=== PATIENT | male | born 1950 | race Caucasian/White ===

== ENCOUNTER → 2020-10-17 15:11 | Outpatient (CLI) | payer OTHER, SELFPAY ==
--- NOTE | 2020-10-17 | DI.RAD.S_ITS ---
PROCEDURE: XR KNEE RT 3V INDICATIONS: RIGHT KNEE PAIN TECHNIQUE: 3 views of the knee were acquired. COMPARISON: None. FINDINGS: Bones: No fractures or dislocations. No suspicious bony lesions. Soft tissues: No joint effusion. No suspicious soft tissue calcifications. IMPRESSION: Normal for age, source of current knee pain symptoms is not seen. Dictated by: Bg Garcia M.D. on 10/17/2020 at 16:33 Approved by: Bg Garcia M.D. on 10/17/2020 at 16:34
== END ==
PROVIDERS: PCP Family Medicine; Referring Provider Family Medicine; Visit Provider Family Medicine
DX: M25.561 Pain in right knee (principal)
CPT/HCPCS: 73562

== ENCOUNTER 2023-02-07 14:13 | Emergency (ER) | payer OTHER, SELFPAY ==
[2023-02-07 14:17] VITALS: BP 175/79; PULSE 79; RESP 18; TEMP 37.1; O2SAT 98
--- NOTE | 2023-02-07 15:05 | ED_ITS ---
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 He states this hurts, there was bleeding, it is bandaged up in a compression dressing and there further bleeding. He denies any injury beyond the finger pad. Denies any wrist or hand pain. Does not remember when his last tetanus was. States that he has not had any pain medication complains of pain 03/25. He is right-hand dominant. It is right-hand 3rd digit at the finger pad. No fingernail involvement. Related Data Allergies Allergy/AdvReac Type Severity Reaction Status Date / Time No Known Drug Allergies Allergy Verified 02/07/23 14:20 Review of Systems <SHERICE Mckinney - Last Filed: 02/07/23 15:23> Review of Systems ROS Unobtainable: All systems reviewed & are unremarkable except as noted in HPI and below Exam <SHERICE Mckinney - Last Filed: 02/07/23 15:23> Narrative Exam Narrative: MSK: Small laceration to the tip of his 3rd digit not involving the fingernail or any deep structures, full range of motion and brisk cap refill, no suspected tendon injury. Laceration is approximately 1 cm long and C-shaped. No bony tenderness to palpation. Initial Vital Signs Initial Vital Signs: Vital Signs Temperature 98.8 F 02/07/23 14:17 Pulse Rate 79 02/07/23 14:17 Respiratory Rate 18 02/07/23 14:17 Blood Pressure 175/79 H 02/07/23 14:17 Pulse Oximetry 98 02/07/23 14:17 Oxygen Delivery Method Room Air 02/07/23 14:17 <Preet Avelar DO - Last Filed: 02/08/23 07:03> Initial Vital Signs Initial Vital Signs: Vital Signs Temperature 98.8 F 02/07/23 14:17 Pulse Rate 79 02/07/23 14:17 Respiratory Rate 18 02/07/23 14:17 Blood Pressure 175/79 H 02/07/23 14:17 Pulse Oximetry 98 02/07/23 14:17 Oxygen Delivery Method Room Air 02/07/23 14:17 Procedures <SHERICE Mckinney - Last Filed: 02/07/23 15:23> Laceration Repair Laceration 1: Site: upper extremity and hand Side (If applicable): right Size (cm): 1 Description: flap Depth: simple, single layer Local Anesthetic: lidocaine 2% Amount of anesthesia used (mL): 1 Pre-repair: wound explored Skin layer closed with: nylon Skin layer suture size: 5-0 Number of sutures: 4 Technique: simple, interrupted Course <SHERICE Mckinney - Last Filed: 02/07/23 15:23> Orders Ordered: Discontinued Medications Hydrocodone Bitart/Acetaminophen (Hydrocodone/Acet 5/325 Tablet) 1 tab PO NOW ONE Stop: 02/07/23 14:54 Last Admin: 02/07/23 15:09 Dose: 1 tab Documented By: MARILYN Bacitracin (Bacitracin Oint 0.9 Gm Pckt) 1 applic TOP NOW ONE Stop: 02/07/23 14:58 Last Admin: 02/07/23 15:09 Dose: 1 applic Documented By: MARILYN Diphtheria/Tetanus/Acell Pertussis (Tet,Diph,Pertuss(Acell),Vac/Pf 0.5 Ml Syringe) 0.5 ml IM .ONCE ONE Stop: 02/07/23 14:54 Last Admin: 02/07/23 15:09 Dose: 0.5 ml Documented By: MARILYN Lidocaine HCl (Lidocaine 2% Inj Sdv 5ml) 5 ml INJ INTRA-OP ONE Stop: 02/07/23 14:58 Last Admin: 02/07/23 15:08 Dose: 5 ml Documented By: MARILYN Vital Signs Vital signs: Vital Signs - 8 hr 02/07/23 14:17 Temperature 98.8 F Pulse Rate 79 Respiratory Rate 18 Blood Pressure 175/79 H Pulse Oximetry 98 Oxygen Delivery Method Room Air <Preet Avelar DO - Last Filed: 02/08/23 07:03> Orders Ordered: Discontinued Medications Hydrocodone Bitart/Acetaminophen (Hydrocodone/Acet 5/325 Tablet) 1 tab PO NOW ONE Stop: 02/07/23 14:54 Last Admin: 02/07/23 15:09 Dose: 1 tab Documented By: MARILYN Bacitracin (Bacitracin Oint 0.9 Gm Pckt) 1 applic TOP NOW ONE Stop: 02/07/23 14:58 Last Admin: 02/07/23 15:09 Dose: 1 applic Documented By: MARILYN Diphtheria/Tetanus/Acell Pertussis (Tet,Diph,Pertuss(Acell),Vac/Pf 0.5 Ml Syringe) 0.5 ml IM .ONCE ONE Stop: 02/07/23 14:54 Last Admin: 02/07/23 15:09 Dose: 0.5 ml Documented By: MARILYN Lidocaine HCl (Lidocaine 2% Inj Sdv 5ml) 5 ml INJ INTRA-OP ONE Stop: 02/07/23 14:58 Last Admin: 02/07/23 15:08 Dose: 5 ml Documented By: MARILYN Vital Signs Vital signs: Vital Signs - 8 hr 02/07/23 14:17 Temperature 98.8 F Pulse Rate 79 Respiratory Rate 18 Blood Pressure 175/79 H Pulse Oximetry 98 Oxygen Delivery Method Room Air MDM - Extremity Injury (Upper) <Tri Michel [facility] - Last Filed: 02/07/23 15:23> MDM Narrative Medical decision making narrative: Chief Complaint: Finger laceration Independent historian: Patient Multiple etiologies for patient's complaint considered including, but not limited to: Finger laceration, fingernail injury, tendon laceration, foreign b ese, contaminated wound I have independently reviewed the patient's vital signs and nursing notes as well as prior records if available. My interpretation of imaging: No imaging indicated as patient has only finger had involvement, no tenderness over the bony structures, full range of motion, brisk cap refill. Course of care: Suture repair was completed, tetanus was updated, patient was given hydrocodone and lidocaine injection for pain control, his wound was closed with 4 sutures, he tolerated this well, understands of his sutures removed in 10 days and will follow up with his primary care provider for this. Social considerations that may affect disposition: none Questions are addressed and there is agreement with the plan and for follow-up. I consulted with the ED attending physician Dr. Avelar as needed for higher level of care considerations and they were available for discussion and recommendations regarding plan of care and diagnostic testing. Patient is appropriate for outpatient management. Discharge Plan Departure Patient Disposition: Home Clinical Impression: Laceration of finger Qualifiers: Encounter type: initial encounter Finger: middle finger Damage to nail status: without damage Foreign body presence: without foreign body Laterality: right Qualified Code(s): S61.212A - Laceration without foreign body of right middle finger without damage to nail, initial encounter Instructions: DI for Laceration Repair -- Finger Activity Restrictions/Additional Instructions: *You have been diagnosed with laceration, there four sutures in your 3rd finger. Please keep this clean, you may wash your hands like usual, apply topical antibiotic ointment and Band-Aid to keep it clean. 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 Have a great day. Sutures removed in 10 days. *What to do: *Please continue to take your regular medications as directed. [ ] New medication prescriptions sent to your pharmacy: [ ] [ ] New medication written as a paper prescription [x ] No new medications given *Please call and schedule follow up with your primary care provider in 2-3 days, at least for an update. Let them know you were seen in the Emergency Department for the above problem. We will electronically transmit a record of today's note if your PCP or specialist is in our system. *If you do not have a primary care provider please contact [phone] to establish care with one of the [facility] primary care providers. *Return to the Emergency Department for worsening symptoms, inability to keep liquids down, fever greater than 101F, chills, or other concerning symptom. Referrals: Michael Manuel MD [Primary Care Provider] - Stand Alone Forms: Patient Portal/API <Preet Avelar DO - Last Filed: 02/08/23 07:03> [facility] ED Attending Shreya Attestation: I was immediately available in the department for consultation. Documentation has been reviewed. I agree with assessment and plan.
[2023-02-07] MEDS: LIDOCAINE 2% INJ SDV 5ML 5 ML INJ (15:08)
[2023-02-07] MEDS: TET,DIPH,PERTUSS(ACELL),VAC/PF 0.5 ML SYRINGE IM (15:09)
[2023-02-07] MEDS: BACITRACIN OINT 0.9 GM PCKT 1 APPLIC TOP (15:09)
[2023-02-07] MEDS: HYDROCODONE/ACET 5/325 TABLET 1 TAB PO (15:09)
[2023-02-07 15:18] VITALS: BMI 24.6
--- NOTE | 2023-02-07 15:20 | PC.NURSE ---
sutures done by SHERICE Michel
== END 2023-02-07 15:29 | disposition home or self-care (01) ==
PROVIDERS: Emergency Provider Nurse Practitioner Critical Care Medicine; PCP Family Medicine
DX: S61.212A Laceration without foreign body of right middle finger without damage to nail, initial encounter (principal); W26.8XXA Contact with other sharp object(s), not elsewhere classified, initial encounter; Z79.01 Long term (current) use of anticoagulants; Z23 Encounter for immunization
CPT/HCPCS: 12001; 90471; 99283; 99284; 90715

== ENCOUNTER → 2023-04-17 07:58 | Outpatient (CLI) | payer OTHER, SELFPAY ==
--- NOTE | 2023-04-17 | DI.NM.S_ITS ---
PROCEDURE: NM UPTAKE AND SCAN RADIOPHARMACEUTICAL: 410 ?Ci I-123 sodium iodide by mouth. INDICATIONS: HYPERTHYROIDISM TECHNIQUE: I-123 sodium iodide was administered orally. Anterior neck images were obtained, and iodine uptake by the thyroid gland calculated using history faculty member's software. COMPARISON: [facility], CT, CT ANGIO CHEST, 04/04/2022, 10:41. FINDINGS: Morphology: The thyroid gland has normal morphology and poor radioiodine uptake. No 'cold' or 'hot' thyroid nodules are identified. Uptake: 6 hour thyroid uptake is 0.5%; normal ranges are from 6-18%. 24 hour thyroid uptake is 0.9%; normal ranges are from 10-30%. IMPRESSION: 1. There is diffusely decreased radioiodine uptake. The patient had a recent chest CT with iodinated intravenous contrast, which could cause suppressed radioiodine uptake by thyroid. Recommend repeat examination in 6-8 weeks. Dictated by: Bhavesh Desai M.D. on 04/18/2023 at 11:39 Approved by: Bhavesh Desai M.D. on 04/18/2023 at 11:47
== END ==
PROVIDERS: PCP Family Medicine; Referring Provider Family Medicine; Visit Provider Family Medicine
DX: E05.90 Thyrotoxicosis, unspecified without thyrotoxic crisis or storm (principal)
CPT/HCPCS: 78014; A9516

== ENCOUNTER → 2023-06-11 07:41 | Outpatient (CLI) | payer OTHER, SELFPAY ==
--- NOTE | 2023-06-11 | DI.NM.S_ITS ---
PROCEDURE: [place] UPTAKE AND SCAN RADIOPHARMACEUTICAL: 0.4 mCi I-123 sodium iodide by mouth. INDICATIONS: Thyrotoxicosis TECHNIQUE: I-123 sodium iodide was administered orally. Anterior neck images were obtained, and iodine uptake by the thyroid gland calculated using insurance biller's software. COMPARISON: [place], [place], [place] UPTAKE AND SCAN, 04/17/2023, 8:22. FINDINGS: Morphology: No significant heterogeneity. Diffusely decreased uptake on visual inspection. No hot nodules identified. Uptake: 6 hour thyroid uptake is 0.5 % ; normal ranges are from 6-18%. 24 hour thyroid uptake is 0.7% ; normal ranges are from 10-30%. IMPRESSION: Abnormally low iodine radiotracer uptake. Dictated by: Phil Lakhani M.D. on 06/12/2023 at 10:47 Approved by: Phil Lakhani M.D. on 06/12/2023 at 10:50
== END ==
PROVIDERS: PCP Family Medicine; Referring Provider Family Medicine; Visit Provider Family Medicine
DX: E05.90 Thyrotoxicosis, unspecified without thyrotoxic crisis or storm (principal)
CPT/HCPCS: 78014; A9516

== ENCOUNTER → 2023-09-10 14:41 | Outpatient (CLI) | payer OTHER, SELFPAY ==
--- NOTE | 2023-09-10 | DI.US.S_ITS ---
PROCEDURE: US ABDOMEN LIMITED INDICATIONS: Umbilical hernia without obstruction or gangrene TECHNIQUE: Real-time focused scanning was performed of the abdomen, with image documentation. COMPARISON: None. Findings and impression: 3.2 x 2.2 centimeter fat filled suspected hernia. The neck measures about 0.9 centimeters. Dictated by: Phil Lakhani M.D. on 09/10/2023 at 16:20 Approved by: Phil Lakhani M.D. on 09/10/2023 at 16:20
== END ==
PROVIDERS: PCP Family Medicine; Referring Provider Family Medicine; Visit Provider Family Medicine
DX: K42.9 Umbilical hernia without obstruction or gangrene (principal)
CPT/HCPCS: 76705

== ENCOUNTER → 2023-10-10 08:36 | Outpatient (CLI) | payer OTHER, SELFPAY ==
--- NOTE | 2023-10-10 | DI.CT.S_ITS ---
PROCEDURE: CT ABDOMEN PELVIS W CON INDICATIONS: LYMPHADENOPATHY TECHNIQUE: After the administration of intravenous contrast, axial sections acquired from the lung bases to the pubic symphysis. Coronal and sagittal reformats were performed. For radiation dose reduction, the following was used: automated exposure control, adjustment of mA and/or kV according to patient size. COMPARISON: [facility], CT, CT CHEST WITHOUT CONTRAST, 09/17/2023, 8:18. FINDINGS: Image quality: Diagnostic. Lower Chest: Bibasilar atelectasis/scarring. Small hiatal hernia. ABDOMEN: Liver: Liver is unremarkable in appearance without focal intrahepatic abnormalities. No intrahepatic or extrahepatic biliary ductal dilatation. Gallbladder: Gallbladder is contracted without evidence for acute cholecystitis. No radiopaque stone identified. Biliary ducts: No biliary dilation. Pancreas: No ductal dilation. 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 Adrenal Glands: No adrenal nodules. Kidneys and Ureters: No hydronephrosis. No solid mass. No complex renal cystic lesion which requires follow up. Bilateral ureters are normal in course and caliber. Stomach and Bowel: Normal colonic caliber, without significant wall thickening. Moderate fecal material seen throughout the colon. No evidence for bowel obstruction or acute inflammatory changes. Peritoneum: No abnormal intraperitoneal fluid. No free air. Ventral Wall: Postsurgical changes of the ventral abdomen. Small fat containing ventral/periumbilical hernia without acute inflammation. Abdominal Nodes: There is diffuse stranding involving the mesentery and retroperitoneum in the periaortic region. Numerous scattered mesenteric and retroperitoneal lymph nodes which are more notable for number rather than size. No conglomerate masses or adenopathy seen. Vessels: Scattered atherosclerotic calcifications of the abdominal aorta and iliac vessels without aneurysmal dilatation. The inferior vena cava appears patent. PELVIS: Pelvic Organs: Unremarkable. Bladder: Unremarkable. Pelvic Nodes: No enlarged lymph nodes. Miscellaneous: No inguinal hernias are seen. Bones: No aggressive osseous abnormality. Visualized osseous structures appear intact without acute fracture or focal destructive lesion. No acute compression fractures of the imaged spine. IMPRESSION: 1. Diffuse mesenteric and retroperitoneal stranding with numerous scattered mesenteric and retroperitoneal lymph nodes that are more notable for number rather than size. No conglomerate masses or adenopathy seen. Findings are nonspecific and may represent sequela of an infectious or inflammatory process versus possible early neoplastic process such as early lymphoma, desmoid tumor or carcinoid. Recommend clinical correlation. 2. 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 Please correlate with prior surgical history. 3. Atherosclerosis. Dictated by: Jos Jarquin M.D. on 10/10/2023 at 11:26 Approved by: Jos Jarquin M.D. on 10/10/2023 at 11:44
[2023-10-10 09:28] LABS: Estimated Glomerular Filt Rate > 60 mL/min (>60)
== END ==
LOC: CT 08:37
PROVIDERS: Radiology Diagnostic Radiology; PCP Family Medicine; Referring Provider Family Medicine; Visit Provider Family Medicine
DX: R59.1 Generalized enlarged lymph nodes (principal); I70.0 Atherosclerosis of aorta
CPT/HCPCS: 36415; 74177; 82565; Q9967

== ENCOUNTER → 2023-10-15 10:42 | Outpatient (CLI) | payer OTHER, SELFPAY | LOC: LAB 10:45 | PROVIDERS: PCP Family Medicine; Referring Provider Family Medicine; Visit Provider Family Medicine | DX: R59.1 Generalized enlarged lymph nodes (principal) | CPT/HCPCS: 36415 ==

== ENCOUNTER 2023-10-29 06:43 | Day surgery (SDC) | payer OTHER, SELFPAY ==
[2023-10-28 15:20] VITALS: BMI 25.4
[2023-10-29] VITALS (8 sets, daily range): BP systolic 125–154; BP diastolic 57–67; PULSE 56–78; RESP 10–16; TEMP 36.3–36.6; O2SAT 93–95; BMI 23.9
--- NOTE | 2023-10-29 | PATH_ITS ---
[facility] Accession Number: [id number] No. of containers..01 Tissue . 01 Material submitted: . body - SUBCUTANEIOUS NODULE . 01 Diagnosis: SUBCUTANEOUS NODULE, EXCISION: Calcified and hyalinized nodule with foreign body-associated giant cell reaction, cholesterol clefts, and fat necrosis. See comment. MRV 11/04/2023 1243 Local . 01 Comment: The findings are nonspecific and could be compatible with hernia contents given the clinical history. There is no evidence of malignancy. . 01 Electronically signed: . Lesly Macdonald MD, Pathologist NPI- [id number] . 01 Gross description: . The specimen is received in formalin labeled with the patient's name, , and subcutaneous s nodule, and consists of a yellow to vlileda, rubbery, soft tissue fragment measuring 1.7 x 1.2 x 0.7 cm with no skin identified. The specimen is inked blue, and sectioning reveals yellow to orange, gritty cut surface consistent with calcification. The specimen is submitted entirely in cassettes A1-A2 following brief decalcification. ([id number]) /MRV 10/31/2023 1323 Local . 01 Pathologist provided ICD-10: K43.2 . 01 CPT . 662320 Specimen Comment: A courtesy copy of this report has been sent to [phone] Performed at: 01 [facility] [address] [place] [address], [employer] [id number] MD Alhaji Carolina MD Phone: [phone]
[2023-10-29] MEDS: LACTATED RINGERS 1,000 ML 42 ML IV (07:28)
[2023-10-29] MEDS: ACETAMINOPHEN 325 MG TABLET 975 MG PO (07:31)
--- NOTE | 2023-10-29 07:53 | PM.HP.1 ---
History of Present Illness History of Present Illness Date Patient Seen: 10/29/23 Time Patient Seen: 07:53 Chief complaint: SDC Narrative: This is a 73-year-old man with an incisional hernia at his umbilicus as well as small subcutaneous firm nodule under the scar in the right midabdomen. See prior office note for more details.. [facility] Medical History (Updated 10/29/23 @ 07:05 by Ruben Mckeon RN) Tremor Atrial fibrillation GERD (gastroesophageal reflux disease) Hyperlipemia HTN (hypertension) Social History household members: spouse Smoking Status: Former smoker alcohol intake: never Meds Home Medications and Allergies Home Medications Medication Instructions Recorded Confirmed Type albuterol sulfate 90 mcg/actuation 2 puff inhalation Q6H PRN 09/25/23 10/29/23 History aerosol inhaler shortness off breath apixaban 5 mg tablet 5 mg PO BID 09/25/23 10/29/23 History bisoprolol fumarate 10 mg tablet 10 mg PO DAILY 09/25/23 10/29/23 History gabapentin 300 mg capsule 900 mg PO TID 09/25/23 10/29/23 History losartan 25 mg tablet 25 mg PO DAILY 09/25/23 10/29/23 History montelukast 10 mg tablet 10 mg PO BEDTIME 09/25/23 10/29/23 History multivitamin (Daily Multi-Vitamin 1 tab PO DAILY 09/25/23 09/25/23 History tablet) omeprazole 20 mg capsule,delayed 20 mg PO DAILY 09/25/23 10/29/23 History release rosuvastatin 10 mg tablet 10 mg PO DAILY 09/25/23 10/29/23 History mometasone 220 mcg/actuation(60 2 inh inhalation BID 10/29/23 10/29/23 History doses) breath activated powder inhaler Allergies Allergy/AdvReac Type Severity Reaction Status Date / Time No Known Drug Allergies Allergy Verified 10/29/23 07:05 Exam Vital Signs (past 8 hours): - 10/29/23 07:26 Temperature 97.3 F L Pulse Rate 56 L Respiratory Rate 16 Blood Pressure 154/67 H Pulse Oximetry 93 Oxygen Delivery Method Room Air Oxygen Delivery Method Room Air Narrative Exam Narrative: Incisional hernia through the umbilicus 5 mm firm subcutaneous nodule under of the right lateral scar, consistent with a stitch granuloma Assessment & Plan Assessment and plan (1) Incisional hernia: Qualifiers: Obstruction and gangrene presence: without obstruction or gangrene Qualified Code(s): K43.2 - Incisional hernia without obstruction or gangrene Status: Acute Plan We reviewed the risks and benefits of umbilical hernia repair and removal of subcutaneous nodule and he would like to proceed.
--- NOTE | 2023-10-29 07:55 | SUR.PREOP ---
IS with verbal instructions provided, patient able to reach [phone].
[2023-10-29] MEDS: CEFAZOLIN 2 GM/100 ML PREMIX 100 ML IV (08:08)
--- NOTE | 2023-10-29 08:26 | SUR.OPER ---
Supine on padded OR bed, head on pillow, arms secured on padded arm boards at <90 degrees abduction, legs uncrossed, safety belt at thigh, tape over blanket over lower legs.
[2023-10-29] MEDS: BUPIVACAINE 0.5% (PF) 30 ML, EPINEPHrine 0.15 MG INJ (08:33)
--- NOTE | 2023-10-29 09:06 | P.OP_ITS ---
Operative Date/Time/Diagnoses Date of procedure: 10/29/23 Time of procedure: 09:06 Pre-op diagnosis: Incisional hernia and right lower abdominal subcutaneous nodule Post-op diagnosis: same Procedure & Clinicians Procedure: Open incisional hernia repair with mesh Excisional biopsy of right lower abdominal subcutaneous nodule Same procedure as scheduled: Yes Surgeon: Nithin Villafuerte Anesthesia Type: General Operative Notes Procedure in detail: Ancef was administered. The patient was brought to the operating room, placed on the table in the supine position and general LMA anesthesia was induced. The abdomen was prepped and draped in the usual fashion. A time-out was performed. A 5 cm transverse incision was made superior to the umbilicus over the palpable hernia. The hernia sac was dissected free from the surrounding subcutaneous adipose tissue. The sac was dissected free from the surrounding adipose tissue using a combination of cautery, sharp and blunt dissection. The hernia sac was dissected free from the fascial ring and allowed to drop back down into the abdomen. The sac was not opened. The fascia was then closed transversely with two interrupted 0 Vicryl sutures. The subcutaneous adipose tissue was cleared off of the anterior sheath circumferentially about 2 cm in each direction. A piece of polypropylene mesh was trimmed to fit over the fascial closure and secured with Tisseel. Once the Tisseel was dried the subcutaneous adipose tis mynor was closed with a single 3-0 Vicryl stitch. The skin was closed with multiple interrupted 3-0 Vicryl dermal sutures followed by a running 4 Monocryl subcuticular closure. We then created a 3 cm transverse incision over the palpable subcutaneous nodule. The nodule was dissected free from the surrounding tissue. The nodule was about 1 cm in diameter. It appeared to be focus of fibrotic tissue, possibly a stitch granuloma. It was sent off in formalin. The wound was closed in layers using multiple interrupted 3-0 Vicryl dermal sutures and a running 4-0 Monocryl subcuticular stitch. Steri-Strips were applied followed by a gauze dressing. EBL: 10 mL Specimen: Right abdominal subcutaneous nodule Post-operative Condition: stable Disposition: PACU
[2023-10-29] MEDS: OXYCODONE IR 5 MG TABLET PO ×2 (09:35→10:04)
[2023-10-29] MEDS: ONDANSETRON 4 MG/2 ML INJ IV (10:04)
== END 2023-10-29 10:29 | disposition home or self-care (01) ==
PROVIDERS: PCP Family Medicine; Referring Provider Surgery; Visit Provider Surgery
PROC: (CPT 49593; principal; 2023-10-29 07:45)
DX: K43.2 Incisional hernia without obstruction or gangrene (principal); R22.2 Localized swelling, mass and lump, trunk
CPT/HCPCS: 49593; 11106; J0171; J0330; J0690; J1100; J2405; J2704; J3010

== ENCOUNTER 2024-09-20 09:02 | Emergency (ER) | payer OTHER, SELFPAY ==
[2024-09-20] VITALS (20 sets, daily range): BP systolic 121–134; BP diastolic 57–80; PULSE 58–125; RESP 13–23; O2SAT 91–95; BMI 23.7
--- NOTE | 2024-09-20 09:11 | EKG_ITS ---
[place] [address] [address], [place] [address] Test Date: 2024-09-20 Pat Name: Rahul Jeff Department: Room: Gender: Male Rn Field: JANETT : 1950 Requested By: Order Number: [id number] Reading MD: Geoffrey Muniz Measurements Intervals [place] Rate: 114 P: NV: QRS: -28 QRSD: 88 T: 3 QT: 332 QTc: 457 Interpretive Statements Atrial fibrillation with rapid ventricular response Electronically Signed On 09-20-2024 14:33:23 PST by Geoffrey Muniz
--- NOTE | 2024-09-20 09:12 | ED_ITS ---
HPI - Arrhythmia/Palpitations General Chief Complaint: Chest Pain Stated Complaint: Afib Time Seen by Provider: 09/20/24 09:12 Source: patient, RN notes reviewed and old records reviewed Mode of arrival: Family Vehicle Limitations: no limitations History of Present Illness HPI narrative: 74-year-old male history of atrial fibrillation on apixaban, hypertension, dyslipidemia, prior brain surgery and splenectomy for hemolytic autoimmune anemia who presents with complaint of atrial fibrillation patient states he noticed in the past several days that has a little bit harder going upstairs developed some pressure in his chest yesterday while going upstairs. He was felt just a little bit unwell describes some chest pressure but without radiation he has had some palpitations and a sensation in his heartbeat is fast irregular in his had shortness of breath with the exertion. Patient states he is currently feels palpitations but denies any other symptoms. Has not had any chest pain or pressure or shortness of breath at rest. Notes particularly going up stairs seems to exacerbate his symptoms. No fevers no cold cough or congestion symptoms. No nausea or vomiting. Patient is in a little bit of more sweatiness at nighttime. No swelling in his extremities. No diarrhea or constipation, no urinary symptoms. Patient states he has had a cardiac ablation in the past no cardiac stents, splenectomy for hemolytic autoimmune anemia, hernia repair, laminectomy for his back and had prior brain surgery where the brain was going out into the sinuses. Patient states he takes Eliquis, states he did not take his losartan this morning sounds like he may not be on any sort of beta blockade or rate limiting medication currently. Notes his normal rate is about 72. No tobacco, alcohol or recreational drugs. States he was allergic to a medication that starts with a P that is for his heart. Dr. Quiroz is his primary care physician, Dr. Murillo is his machine sole leveler/cardiology Related Data Home Medications Medication Instructions Recorded Confirmed albuterol sulfate 90 mcg/actuation 2 puff inhalation Q6H PRN 09/25/23 11/11/23 aerosol inhaler shortness off breath apixaban 5 mg tablet 5 mg PO BID 09/25/23 11/11/23 bisoprolol fumarate 10 mg tablet 10 mg PO DAILY 09/25/23 11/11/23 gabapentin 300 mg capsule 900 mg PO TID 09/25/23 11/11/23 losartan 25 mg tablet 25 mg PO DAILY 09/25/23 11/11/23 montelukast 10 mg tablet 10 mg PO BEDTIME 09/25/23 11/11/23 multivitamin (Daily Multi-Vitamin 1 tab PO DAILY 09/25/23 11/11/23 tablet) omeprazole 20 mg capsule,delayed 20 mg PO DAILY 09/25/23 11/11/23 release rosuvastatin 10 mg tablet 10 mg PO DAILY 09/25/23 11/11/23 mometasone 220 mcg/actuation(60 2 inh inhalation BID 10/29/23 11/11/23 doses) breath activated powder inhaler primidone 50 mg tablet 50 mg PO ONCE 11/11/23 11/11/23 Previous Rx's Medication Instructions Recorded metoprolol succinate 25 mg 12.5 mg (1/2 x 25 mg) PO DAILY #10 09/20/24 tablet,extended release 24 hr tabs Allergies Allergy/AdvReac Type Severity Reaction Status Date / Time No Known Drug Allergies Allergy Verified 11/11/23 09:16 Review of Systems Review of Systems ROS Unobtainable: All systems reviewed & are unremarkable except as noted in HPI and below Patient History Medical History Tremor Atrial fibrillation GERD (gastroesophageal reflux disease) Hyperlipemia HTN (hypertension) Surgical History Hx of hernia repair Social History household members: spouse Smoking Status: Former smoker alcohol intake: never Smoking Status: Former smoker Exam Narrative Exam Narrative: GENERAL: Alert and oriented x three, well-appearing elderly male in mild distress HEENT: Head normocephalic, atraumatic, EOMI, pupils reactive, face symmetric, moist mucous membranes NECK: Supple, full range of motion CARDIOVASCULAR: Irregularly irregular rate and rhythm without murmurs, rubs or gallops. No JVD. No edema bilateral lower extremities. RESPIRATORY: Breath sounds equal bilaterally, no wheezes rales or rhonchi. No tachypnea, no accessory muscle use ABDOMEN: Soft, nontender. Normoactive bowel sounds all 4 quadrants. No guarding or rebound, rigidity, no mass : No CVA tenderness EXTREMITIES: Normal range of motion, no clubbing or edema. Neurovascularly intact NEUROLOGICAL: Cranial nerves II through XII grossly intact. Moving all extremities SKIN: Warm, dry, no petechiae, no rashes or lesions. Initial Vital Signs Initial Vital Signs: Vital Signs Pulse Rate 125 H 09/20/24 09:12 Respiratory Rate 18 09/20/24 09:12 Blood Pressure 134/80 09/20/24 09:12 Pulse Oximetry 94 09/20/24 09:12 Oxygen Delivery Method Room Air 09/20/24 09:12 Procedures Cardioversion Consent Signed: Yes Indication: Atrial fibrillation with rapid ventricular response Stability: Stable Number of attempts (shocks): 1 Joules used: 120 Cardiac rhythm post-cardioversion: Sinus bradycardia Procedural Sedation Consent signed: Yes Time out performed: Yes Indication: cardioversion ASA Class: II Mallampati Airway Classification: Class III Time of Last PO Intake: 10:00 Preparation: monitor tech applied, pulse oximeter, capnometry used, supplemental O2 applied, suction/airway equipment at bedside and IV secured IV Propofol dose (mg): 50 ED Sedation Level: Moderate (Concious) Patient Tolerated Procedure: Well Complications: hypoventilation (patient arms were tense and elevated but resolved as medication wore off with no other symptoms, no seizure activity, has known tremor.) Interventions: Airway repositioned Course Orders Ordered: ED Orders 09/20/24 09:16 XR chest 1V Stat Complete Blood Count AUTO DIFF Stat Comprehensive Metabolic Panel Stat Lipase Stat Magnesium Stat NT-proBNP (BNP-Adult 18+) Stat PTT Partial Thromboplastin Magan Stat Prothrombin Time INR Stat Troponin & CK Cardiac Panel Stat EKG-12 Lead Stat 09/20/24 11:52 EKG-12 Lead Stat Discontinued Medications Aspirin (Aspirin 81 Mg Chew Tab) 324 mg PO NOW ONE Stop: 09/20/24 09:17 Metoprolol Tartrate (Metoprolol Tartrate 5 Mg/5 Ml Inj) 5 mg IV NOW ONE Stop: 09/20/24 09:55 Last Admin: 09/20/24 11:04 Dose: 5 mg Documented By: YOSHI Propofol (Propofol 200 Mg/20 Ml Vial) 70 mg 1 mg/kg (70 mg) IV NOW ONE Stop: 09/20/24 11:26 Last Admin: 09/20/24 11:35 Dose: 50 mg Documented By: YOSHI Vital Signs Vital signs: Vital Signs - 8 hr 09/20/24 09:12 09/20/24 09:12 09/20/24 09:30 Pulse Rate 125 H 115 H 118 H Respiratory Rate 18 18 22 Blood Pressure 134/80 Pulse Oximetry 94 94 Oxygen Delivery Method Room Air 09/20/24 10:00 09/20/24 10:30 09/20/24 11:00 Pulse Rate 112 H 117 H 116 H Respiratory Rate 22 23 Blood Pressure Pulse Oximetry 91 93 Oxygen Delivery Method 09/20/24 11:30 09/20/24 11:55 09/20/24 12:00 Pulse Rate 122 H 59 L 58 L Respiratory Rate 21 16 16 Blood Pressure Pulse Oximetry 94 Oxygen Delivery Method 09/20/24 12:05 09/20/24 12:10 09/20/24 12:15 Pulse Rate 58 L 68 60 Respiratory Rate 15 17 20 Blood Pressure Pulse Oximetry 92 94 94 Oxygen Delivery Method 09/20/24 12:20 09/20/24 12:25 09/20/24 12:30 Pulse Rate 58 L 58 L 58 L Respiratory Rate 19 16 13 Blood Pressure Pulse Oximetry 92 92 92 Oxygen Delivery Method 09/20/24 12:35 09/20/24 12:40 09/20/24 12:45 Pulse Rate 60 61 62 Respiratory Rate 14 17 13 Blood Pressure Pulse Oximetry 93 94 93 Oxygen Delivery Method 09/20/24 12:50 09/20/24 12:55 09/20/24 13:00 Pulse Rate 62 61 62 Respiratory Rate 14 15 Blood Pressure 121/57 L Pulse Oximetry 94 94 93 Oxygen Delivery Method MDM - Arrhythmia/Palpitations Lab Data 09/20/24 09:16 09/20/24 09:16 Labs: Lab Results 09/20/24 Range/Units 09:16 WBC 6.7 (4.5-11.0) X10^3/uL RBC 5.24 (4.5-5.9) X10^6/uL Hgb 17.3 (13.5-17.5) g/dL Hct 51.8 (41-53) % MCV 98.8 (80-100) fL MCH 33.0 (26-34) PG MCHC 33.4 (30-36) % RDW 13.6 (11.6-14.8) % Plt Count 319 (150-400) X10^3/uL Neut % (Auto) 58.7 (50-75) % Lymph % (Auto) 23.3 L (25-40) % [place] % (Auto) 13.0 (3-14) % Eos % (Auto) 4.5 H (2-4) % Baso % (Auto) 0.5 (0-2) % Neut # (Auto) 4000 (5205-2900) /uL Lymph # (Auto) 1600 (5250-9605) /uL [place] # (Auto) 900 (0-900) /uL Eos # (Auto) 300 (0-450) /uL Baso # (Auto) 0 (0-100) /uL PT 12.7 H (9.4-12.5) SECONDS INR 1.1 (0.9-1.3) APTT 52 H (25.1-36.5) SECONDS Sodium 138 (137-145) mmol/L Potassium 4.2 (3.4-5.1) mmol/L Chloride 105 (98-107) mmol/L Carbon Dioxide 23 (22-32) mmol/L BUN 26 H (9-20) mg/dL Creatinine 0.82 (0.66-1.25) mg/dL Estimated GFR > 60 (>60) mL/min BUN/Creatinine Ratio 31.7 H (6-22) Glucose 144 H (80-110) mg/dL Calcium 9.3 (8.4-10.2) mg/dL Magnesium 2.0 (1.6-2.3) mg/dL Total Bilirubin 0.7 (0.2-1.3) mg/dL AST 32 (17-59) IU/L ALT 25 (<50) IU/L Alkaline Phosphatase 28 L (38-126) U/L Total Creatine Kinase 75 (55-170) U/L Troponin I < 0.012 (0.01-0.034) ng/mL NT-Pro-B Natriuret Pep 3080 H (<125) pg/mL Total Protein 7.4 (6.3-8.2) g/dL Albumin 4.4 (3.5-5.0) g/dL Globulin 3.0 (1.7-4.1) g/dL Albumin/Globulin Ratio 1.5 (1.0-2.8) Lipase 61 (23-300) U/L Imaging Data Chest x-ray: Radiologist's Impresson: [address] [address] XRay Report Signed Patient: Rahul Jeff MR#: [id number] : 1950 Acct:[id number] Age/Sex: 74 / M Date of Service: 09/20/24 Loc: ED Accession Number: [id number] Procedure: XR chest 1V Ordering Provider: Kalli Sevilla D.O. PROCEDURE: XR CHEST 1V INDICATIONS: chest pain TECHNIQUE: One view of the chest was acquired. COMPARISON: [facility], CR, CHEST 2 VIEW, 01/25/2015, 9:11. [facility], CT, CT CHEST WITHOUT CONTRAST, 09/17/2023, 8:18. FINDINGS: Surgical changes and devices: None. Lungs and pleura: No dense airspace disease. Previous CT finding within the posterior right lower lobe is not well seen on radiography. No pleural effusions. Mediastinum: Normal heart size Bones and chest wall: Degenerative changes. IMPRESSION: No dense airspace disease or pleural effusion on this single view study. Dictated by: Phil Lakhani M.D. on 09/20/2024 at 9:08 Approved by: Phil Lakhani M.D. on 09/20/2024 at 9:09 ECG Data Attestation: I personally reviewed and interpreted this ECG as follows: Prior ECG tracings: not available for review Interpretation: AFib with a rapid ventricular response rate of 114 QRS 88 QTC of 457, no acute ST elevation or depression currently. EKG2. Sinus bradycardia rate of 58 [place] 198 QRS of 90 QTC of 422, no acute ST elevation or depression appreciated. MDM Narrative Medical decision making narrative: Labs show white count of 6.7 hemoglobin of 17 platelets of 319. INR is 1.1 electrolytes are appropriate BUN 26 creatinine 0.82 glucose is 144 LFTs are negative alk-phos is 28 CK is 75 troponin less than 0.012 with a BNP of 3080 with no priors for comparison. EKG shows AFib rate of 114, Chest x-ray shows no acute change Patient was given a dose of metoprolol IV. Continues to be in atrial fibrillation with minimal improvement. Patient has been taking his Eliquis regularly describes maybe taking bisoprolol daily but no other rate control medications. Sounds like he has been out of atrial fibrillation for some time. After discussion patient is agreeable for procedural sedation and cardioversion as he was symptomatic. BNP is elevated but patient otherwise does not appear fluid overloaded on chest x-ray or on examination patient has clear lungs with no edema or other cahnges of fluid overload/heart failure. No priors for comparison. Discussed risks versus benefits with the patient and family at bedside. Discussed with patient and family patient consents. Patient had procedural sedation received propofol 50 mg IV with moderate sedation patient was tense his arms got tight and were held elevated but no tonic clonic or focal seizure activity he has a known tremor at baseline and had jaw thrust this slowly resolved as the propofol wore off patient was able to talk and converse normally his tremor has a little bit more pronounced but no persistent muscle tightness or tension. Patient tolerated the procedure well otherwise. Did share with the patient this is somewhat atypical response to propofol and to share with future providers. Patient appears to be in sinus rhythm repeat EKG was obtained confirms sinus bradycardia. Patient is ambulating in the department continues to be sinus rhythm and feeling improved. Discharged with a very low dose of metoprolol as it is unclear if he was actually taking his bisoprolol. Asked patient was family to check follow up with Cardiology for recheck. Discharge Plan Departure Patient Disposition: Home Clinical Impression: Atrial fibrillation with rapid ventricular response Instructions: DI for Atrial Fibrillation Activity Restrictions/Additional Instructions: Follow up with your pairing machine operator, call tomorrow to set up an appointment. You had an electrical cardioversion and procedural sedation here today for atrial fibrillation with a rapid ventricular response. You received propofol for sedation which went well but you did have a little bit of an atypical response with muscle tightness and tension particularly in your arms. Share this information with future physicians if you are having sedation or anesthesia. Continue home medications as prescribed. I would recommend small dose of metoprolol daily until you see your pairing machine operator. Pres[facility] [place]. Don't take this medication if you are heart rate is in the 60s or your blood pressure is low. You can stop it if it makes you feel lightheaded or dizzy. Please return for recurrent elevated heart rate, palpitations, chest pain, shortness of breath, lightheadedness or passing out, new swelling of your extremities or other new or concerning changes. Prescriptions: New metoprolol succinate 25 mg tablet extended release 24 hr 12.5 mg PO DAILY Qty: 10 0RF No Action albuterol sulfate 90 mcg/actuation HFA aerosol inhaler 2 puff inhalation Q6H PRN (Reason: shortness off breath) apixaban 5 mg tablet 5 mg PO BID bisoprolol fumarate 10 mg tablet 10 mg PO DAILY gabapentin 300 mg capsule 900 mg PO TID losartan 25 mg tablet 25 mg PO DAILY montelukast 10 mg tablet 10 mg PO BEDTIME multivitamin [Daily Multi-Vitamin] Tablet 1 tab PO DAILY omeprazole 20 mg capsule,delayed release(DR/EC) 20 mg PO DAILY rosuvastatin 10 mg tablet 10 mg PO DAILY primidone 50 mg tablet 50 mg PO ONCE mometasone 220 mcg/ actuation (60) Aerosol Powdr Breath Activated 2 inh INHALATION BID Referrals: Kem Murillo MD [Physician] - Nicholas Quiroz MD [Primary Care Provider] - Stand Alone Forms: Patient Portal/API/Survey
--- NOTE | 2024-09-20 09:16 | DI.RAD.S_ITS ---
PROCEDURE: XR CHEST 1V INDICATIONS: chest pain TECHNIQUE: One view of the chest was acquired. COMPARISON: [facility], CR, CHEST 2 VIEW, 01/25/2015, 9:11. [facility], CT, CT CHEST WITHOUT CONTRAST, 09/17/2023, 8:18. FINDINGS: Surgical changes and devices: None. Lungs and pleura: No dense airspace disease. Previous CT finding within the posterior right lower lobe is not well seen on radiography. No pleural effusions. Mediastinum: Normal heart size Bones and chest wall: Degenerative changes. IMPRESSION: No dense airspace disease or pleural effusion on this single view study. Dictated by: Phil Lakhani M.D. on 09/20/2024 at 9:08 Approved by: Phil Lakhani M.D. on 09/20/2024 at 9:09
[2024-09-20 09:22] LABS: Add Manual Diff / Slide Review NO; Basophils Absolute Auto 0 /uL (0-100); Basophils Percent Auto 0.5 % (0-2); Eosinophils Absolute Auto 300 /uL (0-450); Eosinophils Percent Auto 4.5 % (2-4); Hematocrit 51.8 % (41-53); Hemoglobin 17.3 g/dL (13.5-17.5); Lymphocytes Absolute Auto 1600 /uL (1100-4500); Lymphocytes Percent Auto 23.3 % (25-40); Mean Corpuscular HGB Conc 33.4 % (30-36); Mean Corpuscular Volume 98.8 fL (80-100); Monocytes Absolute Auto 900 /uL (0-900); Neutrophils Absolute Auto 4000 /uL (1500-7000); Neutrophils Percent Auto 58.7 % (50-75); Platelet Count 319 X10^3/uL (150-400); Red Blood Cell Count 5.24 X10^6/uL (4.5-5.9); Red Cell Distribution Width 13.6 % (11.6-14.8); White Blood Cell Count 6.7 X10^3/uL (4.5-11.0)
[2024-09-20 09:30] LABS: INR 1.1 (0.9-1.3); Prothrombin Time 12.7 SECONDS (9.4-12.5)
[2024-09-20 09:32] LABS: PTT Partial Thromboplastin Tim 52 SECONDS (25.1-36.5)
[2024-09-20 09:34] LABS: Alanine Aminotransferase 25 IU/L (<50); Albumin 4.4 g/dL (3.5-5.0); Albumin Globulin Ratio 1.5 (1.0-2.8); Alkaline Phosphatase 28 U/L (38-126); Aspartate Aminotransferase 32 IU/L (17-59); BUN Creatinine Ratio 31.7 (6-22); Bilirubin Total 0.7 mg/dL (0.2-1.3); Blood Urea Nitrogen 26 mg/dL (9-20); Calcium 9.3 mg/dL (8.4-10.2); Carbon Dioxide 23 mmol/L (22-32); Chloride 105 mmol/L (98-107); Creatine Kinase 75 U/L (55-170); Estimated Glomerular Filt Rate > 60 mL/min (>60); Glucose 144 mg/dL (80-110); HEMOLYSIS 18 (0-50); Lipase 61 U/L (23-300); Potassium 4.2 mmol/L (3.4-5.1); Sodium 138 mmol/L (137-145); Total Protein 7.4 g/dL (6.3-8.2)
[2024-09-20 09:46] LABS: NT-proBNP (BNP-Adult 18+) 3080 pg/mL (<125); Troponin I < 0.012 ng/mL (0.01-0.034)
[2024-09-20] MEDS: METOPROLOL TARTRATE 5 MG/5 ML INJ IV (11:04)
[2024-09-20] MEDS: propofoL 200 MG/20 ML VIAL 70 MG IV (11:35)
--- NOTE | 2024-09-20 11:52 | EKG_ITS ---
[address] [id number] [address] [address] Test Date: 2024-09-20 Pat Name: Rahul Jeff Department: Room: Gender: Male Bun Icer: JULIETA : 1950 Requested By: Order Number: [id number] Reading MD: Geoffrey Muniz Measurements Intervals [place] Rate: 58 P: 43 IN: 198 QRS: -36 QRSD: 90 T: -7 QT: 430 QTc: 422 Interpretive Statements Sinus bradycardia Left axis deviation Electronically Signed On 09-20-2024 14:33:28 PST by Geoffrey Muniz
--- NOTE | 2024-09-20 12:07 | PC.NURSE ---
1134 TO called w/Dr Sevilla and RT Preet. 1135 50mg of propofol pushed. Pt arms became rigid and stiff. Cardioversion performed and pt back in sinus rhythm. Pt hypoxic and 2L NC applied. 1145 1L NC with o2 sat 93% 1150 Pt back on RA & maintaining o2 sat of 96%. 1205 Pt a&ox4. Speaking in full sentences.
== END 2024-09-20 13:21 | disposition home or self-care (01) ==
PROVIDERS: Emergency Provider Emergency Medicine; PCP Family Medicine
DX: I48.91 Unspecified atrial fibrillation (principal); I10 Essential (primary) hypertension; R00.1 Bradycardia, unspecified; Z79.01 Long term (current) use of anticoagulants; Z87.891 Personal history of nicotine dependence
CPT/HCPCS: 36415; 71045; 80053; 82550; 83690; 83735; 83880; 84484; 85025; 85610; 85730; 92960; 93005; 96374; 99152; 99153; 99285; J2704

== ENCOUNTER → 2025-06-08 10:21 | Outpatient (CLI) | payer OTHER, SELFPAY ==
--- NOTE | 2025-06-08 10:22 | DI.CT.S_ITS ---
PROCEDURE: CT CHEST WO CON INDICATIONS: LUNG NODULE F/U TECHNIQUE: Noncontrast 5 mm thick sections acquired from the pulmonary apices to the posterior costophrenic angles. 1 mm lung window, 5 mm thick coronal and sagittal and 7 mm axial MIP reformats were then acquired. For radiation dose reduction, the following was used: automated exposure control, adjustment of mA and/or kV according to patient size. COMPARISON: [facility], CT, CT CHEST WITHOUT CONTRAST, 09/17/2023, 8:18. FINDINGS: Image quality: Diagnostic. Lower Neck: No enlarged lymph nodes. Thyroid: No thyroid nodules which require sonographic follow up, per consensus guidelines. Axillae: No enlarged lymph nodes. Chest Wall: Unremarkable. Bones: Unremarkable. Lungs and Pleura: No pneumothorax or pleural effusions. No consolidation or suspicious nodules. calcified pulmonary micro nodules bilaterally. Subsegmental atelectasis in the lower lungs. Heart: Heart size is normal. No pericardial effusion. Coronary calcifications. Thoracic Vessels: The aorta and pulmonary arteries demonstrate normal size. Atherosclerotic calcified plaques. Mediastinum and [place]: No enlarged lymph nodes. Esophagus: No wall thickening. No hiatal hernia. Upper Abdomen: Visualized upper abdomen solid organs and bowel loops appear normal. IMPRESSION: Resolution of previously seen pulmonary nodules. No suspicious pulmonary nodule. Dictated by: Mario Cruz M.D. on 06/08/2025 at 11:30 Approved by: Mario Cruz M.D. on 06/08/2025 at 11:35
== END ==
LOC: CT 10:21
PROVIDERS: PCP Family Medicine; Referring Provider Family Medicine; Visit Provider Family Medicine
DX: R91.8 Other nonspecific abnormal finding of lung field (principal); I25.10 Atherosclerotic heart disease of native coronary artery without angina pectoris; Z87.891 Personal history of nicotine dependence
CPT/HCPCS: 71250

== ENCOUNTER → 2025-07-21 11:18 | Outpatient (CLI) | payer OTHER, SELFPAY | PROVIDERS: PCP Family Medicine; Referring Provider Family Medicine; Visit Provider Family Medicine | DX: J43.1 Panlobular emphysema (principal); J98.8 Other specified respiratory disorders; R94.2 Abnormal results of pulmonary function studies | CPT/HCPCS: 94060; 94726; 94729 ==